=== PATIENT | male | born 1965 | race Caucasian/White ===

== ENCOUNTER → 2017-04-23 | Outpatient (CLI) | payer BC, OTHER | LOC: M SLEEP 19:52 | PROVIDERS: ATTEND Nurse Practitioner Adult Health | DX: G47.30 Sleep apnea, unspecified (principal) ==

== ENCOUNTER → 2017-05-23 | Outpatient (CLI) | payer BC, OTHER ==
--- NOTE | 2017-05-29 21:15 | SLEEPCENT ---
DATE OF PROCEDURE: 05/23/2017 REFERRING PHYSICIAN: Ernestina Gastelum Nocturnal polysomnography was performed for the titration of pressure therapy in this patient with obstructive sleep apnea syndrome, apnea-hypopnea index of 24. For testing, the patient was fit with a [employer] Quattro full face mask of medium size, 5 cm of water pressure was initially applied to the circuit and the lights were extinguished. 7 hours and 35 minutes of data were reviewed. There were 341 minutes of sleep identified. Sleep latency was prolonged at 66 minutes. Rapid eye movement (REM) latency was prolonged at 178 minutes. Sleep architecture was fair with two REM periods appreciated. Overall sleep efficiency was 78%. EKG showed a sinus rhythm with an average heart rate of 63 beats per minute. EEG showed fairly normal waveforms for awake and sleep stages. Respiratory events were best palliated with a CPAP pressure of 9. CPAP tolerance was good. There was some limb activity appreciated throughout the study. No trains of events were appreciated and the limb movement arousal index was 8. This is a significant increase from his diagnostic test. IMPRESSION: Obstructive sleep apnea syndrome (G47.33). RECOMMENDATION: Nightly use of pressure therapy at 9 cm of water.
== END ==
LOC: M SLEEP 19:55
PROVIDERS: ATTEND Nurse Practitioner Adult Health
DX: G47.33 Obstructive sleep apnea (adult) (pediatric) (principal)

== ENCOUNTER → 2024-09-23 | Outpatient (REF) | LOC: M PLAIMG 16:04 | PROVIDERS: ATTEND Internal Medicine | DX: M25.511 Pain in right shoulder (principal); M25.552 Pain in left hip; M16.12 Unilateral primary osteoarthritis, left hip; M19.011 Primary osteoarthritis, right shoulder ==